=== PATIENT | female | born 1990 | race Caucasian/White ===

== ENCOUNTER 2018-08-10 15:02 | Observation (INO) ==
--- NOTE | 2018-08-10 15:45 | ED ---
HPI General Chief Complaint: Abdominal Pain Stated Complaint: abd pain Time Seen by Provider: 08/10/18 15:29 Source: patient Mode of arrival: ambulatory Limitations: no limitations History of Present Illness HPI narrative: 27 years old female complains of lower abdomen pain and nausea. Patient states her symptoms started 2 days ago. Patient states the pain and cramping pain constant pain localized to lower abdomen. Patient denies any pain radiation. Patient denies any fever chills. Patient denies any dysuria frequency. Patient denies any vaginal discharge or bleeding. Patient denies any back pain. Patient denies any chance of being . complaint: Reports abdominal pain Onset (ago): day(s) Pain Consistency: constant Location: Reports LLQ and RLQ Severity: moderate Severity scale (1-10): 6 Quality: Reports cramping Radiation: Reports none Migration to: Reports no migration Relieving factors: nothing Exacerbating factors: nothing Associated symptoms: Reports nausea Related Data Home Medications Medication Instructions Recorded Confirmed No Known Home Medications 08/10/18 08/10/18 Allergies Allergy/AdvReac Type Severity Reaction Status Date / Time No Known Allergies Allergy Verified 08/10/18 15:04 Review of Systems ROS: all other systems reviewed are negative PMFSH Medical History Medical History Patient denies medical problems (Acute) Surgical History Surgical History No history of previous surgery (Acute) Family History Family History Other Family history in first degree relatives is unremarkable Social History Social History Second Hand Smoke Exposure: No Smoking Status: Never smoker How Often Do You Have a Drink Containing Alcohol: Never Recent Travel in [facility] within the Last 8 Weeks: No Recent Out of Country Travel within the Last 8 Weeks: No Immunization History Tetanus Immunization: >5 Years Exam Narrative Exam Narrative: GENERAL: Well-nourished, well-developed patient. SKIN: Focused skin assessment warm/dry. HEAD: Normocephalic. EYES: No scleral icterus. No injection or drainage. NECK: Supple, trachea midline. No JVD or lymphadenopathy. CARDIOVASCULAR: Regular rate and rhythm without murmurs, gallops, or rubs. RESPIRATORY: Breath sounds equal bilaterally. No accessory muscle use. GASTROINTESTINAL: Abdomen soft, nondistended. Patient has mild tenderness on palpation lower abdomen. No rebound tenderness. No mass. MUSCULOSKELETAL: No cyanosis, or edema. BACK: Nontender without obvious deformity. No CVA tenderness. Course Initial Documented Vital Signs Temperature 98.9 F 08/10/18 15:04 Pulse Rate 112 H 08/10/18 15:04 Respiratory Rate 16 08/10/18 15:04 Blood Pressure 133/72 08/10/18 15:04 Pulse Oximetry 96 08/10/18 15:04 Last Documented Vital Signs Temperature 98.9 F 08/10/18 15:04 Pulse Rate 90 08/10/18 17:10 Respiratory Rate 16 08/10/18 17:10 Blood Pressure 101/67 08/10/18 17:10 Pulse Oximetry 100 08/10/18 17:10 Medical Decision Making MDM Narrative Medical decision making narrative: 27 years old female with low abdominal pain. Medical Screen Exam Complete: Yes Emergency Medical Condition: Yes Differential Diagnosis Differential Diagnosis: Differential diagnosis including colitis, UTI, pyelonephritis, nephrolithiasis, ovarian cyst, ovarian torsion, ectopic , threatened AB, cervicitis, PID. Lab Data Lab results reviewed: Yes I reviewed the patient's lab results. Result diagrams: 08/10/18 14:50 08/10/18 14:50 POC Results POC Urine Results Negative Lab Results 08/10/18 08/10/18 08/10/18 Range/Units 14:00 14:30 14:50 CBC w Diff Slide review pending WBC 17.6 H (4.0-11.0) th/mm3 RBC 4.51 (4.00-5.30) mil/mm3 Hgb 13.9 (11.6-15.3) gm/dL Hct 41.1 (35.0-46.0) % MCV 91.1 (80.0-100.0) fL MCH 30.8 (27.0-34.0) pg MCHC 33.9 (32.0-36.0) % RDW 11.8 (11.6-17.2) % Plt Count 244 (150-450) th/mm3 MPV 9.8 (7.0-11.0) fL Neut % (Auto) 83.2 H (16.0-70.0) % Lymph % (Auto) 9.8 (9.0-44.0) % [place] % (Auto) 5.9 (0.0-8.0) % Eos % (Auto) 0.4 (0.0-4.0) % Baso % (Auto) 0.7 (0.0-2.0) % Neut # (Auto) 14.7 H (1.8-7.7) th/mm3 Lymph # (Auto) 1.7 (1.0-4.8) th/mm3 [place] # (Auto) 1.0 H (0.0-0.9) th/mm3 Eos # (Auto) 0.1 (0.0-0.4) th/mm3 Baso # (Auto) 0.1 (0.0-0.2) th/mm3 WBC Differential . Diff Scan Auto diff confirmed Differential Comment . Sodium (136-145) meq/L Potassium (3.5-5.1) meq/L Chloride (98-107) meq/L Carbon Dioxide (21.0-32.0) meq/L Anion Gap (5-15) meq/L BUN (7-18) mg/dL Creatinine (0.50-1.00) mg/dL Estimated GFR (>89) mL/min Random Glucose (74-106) mg/dL Calcium (8.5-10.1) mg/dL Total Bilirubin (0.2-1.0) mg/dL AST (15-37) U/L ALT (10-53) U/L Alkaline Phosphatase (45-117) U/L Total Protein (6.4-8.2) g/dL Albumin (3.4-5.0) g/dL Lipase (73-393) U/L Urine Color Yellow (Yellw/Straw) Urine Clarity Clear (Clear) Urine pH 6.5 (5.0-8.5) Ur Specific [place] 1.025 (1.002-1.035) Urine Protein 30 H (Neg-Trace) mg/dL Urine Glucose (UA) Negative (Negative) mg/dL Urine Ketones 80 or greater H (Negative) mg/dL Urine Occult Blood Trace (Negative) Urine Nitrate Negative (Negative) Urine Bilirubin Negative (Negative) Urine Ictotest Negative (Negative) Urine Urobilinogen 0.2 (Less than 2) mg/dL Ur Leukocyte Esterase Negative (Negative) Urine RBC 0-3 (0-3) /hpf Urine WBC 6-8 H (0-5) /hpf Ur Squamous Epith Cells 6-10 H (0-5) /hpf Urine Bacteria Few H (None) /hpf Urine Mucus Moderate H (Occasional) /lpf Micro UA Comment Culture indicated Ur Microscopic Review Microscopic reviewed Urine Culture Comments Culture indicated Clue Cells (Wet Prep) None seen (None Seen) Trichomonas (Wet Prep) None seen (None Seen) Yeast (Wet Prep) None seen (None Seen) 08/10/18 Range/Units 14:50 CBC w Diff WBC (4.0-11.0) th/mm3 RBC (4.00-5.30) mil/mm3 Hgb (11.6-15.3) gm/dL Hct (35.0-46.0) % MCV (80.0-100.0) fL MCH (27.0-34.0) pg MCHC (32.0-36.0) % RDW (11.6-17.2) % Plt Count (150-450) th/mm3 MPV (7.0-11.0) fL Neut % (Auto) (16.0-70.0) % Lymph % (Auto) (9.0-44.0) % [place] % (Auto) (0.0-8.0) % Eos % (Auto) (0.0-4.0) % Baso % (Auto) (0.0-2.0) % Neut # (Auto) (1.8-7.7) th/mm3 Lymph # (Auto) (1.0-4.8) th/mm3 [place] # (Auto) (0.0-0.9) th/mm3 Eos # (Auto) (0.0-0.4) th/mm3 Baso # (Auto) (0.0-0.2) th/mm3 WBC Differential Diff Scan Differential Comment Sodium 136 (136-145) meq/L Potassium 4.4 (3.5-5.1) meq/L Chloride 101 (98-107) meq/L Carbon Dioxide 23.9 (21.0-32.0) meq/L Anion Gap 11 (5-15) meq/L BUN 12 (7-18) mg/dL Creatinine 0.71 (0.50-1.00) mg/dL Estimated GFR Greater than 89 (>89) mL/min Random Glucose 96 (74-106) mg/dL Calcium 9.0 (8.5-10.1) mg/dL Total Bilirubin 1.0 (0.2-1.0) mg/dL AST 31 (15-37) U/L ALT 21 (10-53) U/L Alkaline Phosphatase 59 (45-117) U/L Total Protein 7.9 (6.4-8.2) g/dL Albumin 3.8 (3.4-5.0) g/dL Lipase 124 (73-393) U/L Urine Color (Yellw/Straw) Urine Clarity (Clear) Urine pH (5.0-8.5) Ur Specific [place] (1.002-1.035) Urine Protein (Neg-Trace) mg/dL Urine Glucose (UA) (Negative) mg/dL Urine Ketones (Negative) mg/dL Urine Occult Blood (Negative) Urine Nitrate (Negative) Urine Bilirubin (Negative) Urine Ictotest (Negative) Urine Urobilinogen (Less than 2) mg/dL Ur Leukocyte Esterase (Negative) Urine RBC (0-3) /hpf Urine WBC (0-5) /hpf Ur Squamous Epith Cells (0-5) /hpf Urine Bacteria (None) /hpf Urine Mucus (Occasional) /lpf Micro UA Comment Ur Microscopic Review Urine Culture Comments Clue Cells (Wet Prep) (None Seen) Trichomonas (Wet Prep) (None Seen) Yeast (Wet Prep) (None Seen) Imaging Data Radiologist's impression: Abdomen/Pelvis CT 08/10/18 16:24 CONCLUSION: 1. Acute appendicitis. 2. 1.7 cm enhancing lesion in the right lobe of the liver. This probably a hemangioma versus adenoma. On a nonemergent outpatient basis, recommend an MRI of the liver for further evaluation. Discharge Plan Discharge Disposition Patient Disposition: 30 Still Patient Discharge Details Diagnosis: Acute appendicitis Physicians Team ED Provider: Pj Stewart Primary Care Provider: Primary Care Melody Whaley Rxs /Orders / Referrals /Forms Prescriptions: No Action No Known Home Medications RF: 0 Discharge Interventions Interventions: Vital Signs Last Done: 08/10/18 17:10 Status ED Status: With Doctor
[2018-08-10 16:17] LABS: Clarity,Urine Clear (Clear); Color,Urine Yellow (Yellw/Straw); Glucose,Urine (UA) Negative (Negative); Leukocyte Esterase,Urine Negative (Negative); Nitrite,Urine Negative (Negative); PH,Urine 6.5 (5.0-8.5); Specific Gravity,Urine 1.025 (1.002-1.035); Urobilinogen,Urine 0.2 mg/dL (Less than 2)
[2018-08-10 16:20] LABS: Chloride 101 meq/L (98-107); Sodium 136 meq/L (136-145)
[2018-08-10 16:24] LABS: Albumin 3.8 g/dL (3.4-5.0); Anion Gap 11 meq/L (5-15); Blood Urea Nitrogen 12 mg/dL (7-18); Carbon Dioxide 23.9 meq/L (21.0-32.0); Glucose,Random 96 mg/dL (74-106); Lipase 124 U/L (73-393)
[2018-08-10 16:27] LABS: Alanine Aminotransferase 21 U/L (10-53); Aspartate Aminotransferase 31 U/L (15-37); Glomerular Filtration Rate Greater Than 89 mL/min (>89)
[2018-08-10 16:28] LABS: Total Protein 7.9 g/dL (6.4-8.2)
[2018-08-10 16:29] LABS: Alkaline Phosphatase 59 U/L (45-117)
[2018-08-10 16:30] LABS: Baso # (Auto) 0.1 th/mm3 (0.0-0.2); Baso % (Auto) 0.7 % (0.0-2.0); Eos # (Auto) 0.1 th/mm3 (0.0-0.4); Eos % (Auto) 0.4 % (0.0-4.0); Hematocrit 41.1 % (35.0-46.0); Hemoglobin 13.9 gm/dL (11.6-15.3); Lymph # (Auto) 1.7 th/mm3 (1.0-4.8); Lymph % (Auto) 9.8 % (9.0-44.0); Mean Corpuscular HGB Conc 33.9 % (32.0-36.0); Mean Corpuscular Hemoglobin 30.8 pg (27.0-34.0); Mean Corpuscular Volume 91.1 fL (80.0-100.0); Mean Platelet Volume 9.8 fL (7.0-11.0); Mono % (Auto) 5.9 % (0.0-8.0); Neut # (Auto) 14.7 th/mm3 (1.8-7.7); Neut % (Auto) 83.2 % (16.0-70.0); Platelet Count 244 th/mm3 (150-450); Red Blood Count 4.51 mil/mm3 (4.00-5.30); Red Cell Distribution Width 11.8 % (11.6-17.2); White Blood Count 17.6 th/mm3 (4.0-11.0)
[2018-08-10 16:31] LABS: Bilirubin,Urine Negative (Negative); Ictotest,Urine Negative (Negative); RBC,Urine 0-3 /hpf (0-3)
[2018-08-10 16:32] LABS: Bacteria,Urine Few /hpf; Mucus,Urine Moderate /lpf (Occasional)
[2018-08-10 16:35] LABS: Potassium 4.4 meq/L (3.5-5.1)
--- NOTE | 2018-08-10 17:38 | CT ---
EXAM DATE: 08/10/2018 4:48 PM EDT AGE/SEX: 27 years / Female INDICATIONS: Lower abdominal pain and nausea. CLINICAL DATA: This is the patient's initial encounter. Patient reports that signs and symptoms have been present for 2 days and indicates a pain score of 3/10. MEDICAL/SURGICAL HISTORY: None. None. ORAL CONTRAST: No oral contrast ingested. RADIATION DOSE: 13.70 CTDI (mGy) COMPARISON: No prior exams available for comparison. TECHNIQUE: Multiple contiguous axial images were obtained through the abdomen and pelvis following b olus infusion of 95 ml Omnipaque 350 (iohexol) nonionic water-soluble contrast as a single exam dos e. No oral contrast ingested. Using automated exposure control and adjustment of the mA and/or kV ac cording to patient size, radiation dose was kept as low as reasonably achievable to obtain optimal di agnostic quality images. DICOM format image data is available electronically for review and comparis on. FINDINGS: Lower Lungs: The visualized lower lungs are clear. Liver: The liver has a homogeneous density. There is a 1.7 cm enhancing lesion in the right lobe of t he liver.. There is no dilation of the biliary tree. The gallbladder is unremarkable. Spleen: Homogeneous density without enlargement. Pancreas: Unremarkable without mass or calcification. Kidneys: Normal in size and shape. No evidence of mass or hydronephrosis. Adrenal Glands: Unremarkable. Aorta: The aorta and proximal iliac vessels are grossly unremarkable without aneurysmal dilation. Bowel/Mesentery: The bowel gas pattern is grossly within normal limits. The appendix is dilated and surrounded by inflammatory changes in the right lower quadrant. There is a trace of fluid adjacent to the appendix. No definite loculated fluid collections are demonstrated. These findings are consisten t with acute appendicitis. There is no evidence of free air. Abdominal Wall: Intact. Retroperitoneum: No evidence of adenopathy in the retrocrural, para-aortic, or deep pelvic regions. Bladder: Contours are smooth. Reproductive Organs: No abnormal masses or calcifications seen. Inguinal: The inguinal region is unremarkable without evidence of adenopathy. Bony Structures: Unremarkable. CONCLUSION: 1. Acute appendicitis. 2. 1.7 cm enhancing lesion in the right lobe of the liver. This probably a hemangioma versus adenoma . On a nonemergent outpatient basis, recommend an MRI of the liver for further evaluation. Electronically signed by: Eddie Faye MD 08/10/2018 5:36 PM EDT
--- NOTE | 2018-08-10 17:58 | P.HP ---
History of Present Illness Primary Care Physician: No Primary Care Physician Chief Complaint: Abdominal pain History of Present Illness: This is a 27-year-old female patient with no known medical history presented to the ED with complaints of worsening abdominal pain and nausea since Saturday night. Patient states that around Saturday evening she developed a right lower quadrant abdominal pain that was cramping and sharp in nature, was especially worse when she ate or drink anything, she does admit to associated nausea with the abdominal pain although she has not vomited. Denies any diarrhea or changes in her bowels. She does admit to subjective fevers and chills although she did not take her temperature at home. Denies any pain when she urinates. Denies any vaginal discharge or bleeding. Denies any chest pain or shortness of breath. Patient does not have a medical history. Denies any tobacco abuse. Family history negative for any significant disease. Surgical history significant for wisdom teeth extraction. - Diagnosis (1) Acute cholecystitis Review of Systems All other systems reviewed negative except as stated in HPI PMF - History History Provided By: Patient - Medical History Medical History: Medical History (Last Reviewed 08/10/18 @ 17:58 by Angelica Alcantara) Patient denies medical problems - Surgical History Surgical History: Surgical History (Last Reviewed 08/10/18 @ 17:58 by Angelica Alcantara) No history of previous surgery - Family History Family History: Family History (Last Updated 08/10/18 @ 17:58 by Angelica Alcantara) Other Family history in first degree relatives is unremarkable - Social History I have reviewed the patient's Social History: Yes - Tobacco History Second Hand Smoke Exposure: No Tobacco Use In Past 30 Days: No Smoking Status: Never smoker - Alcohol History How Often Do You Have a Drink Containing Alcohol: Never - Travel History Recent Travel in the [place] Within the Last 8 Weeks: No Recent Travel Out of the Country Within the Last 8 Weeks: No - Immunization History Tetanus Immunization: >5 Years Medications and Allergies Allergies Allergy/AdvReac Type Severity Reaction Status Date / Time No Known Allergies Allergy Verified 08/10/18 15:04 Home Medications Medication Instructions Recorded Confirmed Type No Known Home Medications 08/10/18 08/10/18 History Exam Vital signs: Vital Signs 08/10/18 15:04 08/10/18 17:10 Temperature 98.9 F Pulse Rate 112 H 90 Respiratory Rate 16 16 Blood Pressure 133/72 101/67 Pulse Oximetry 96 100 Intake & Output 08/09/18 08/10/18 08/10/18 18:59 06:59 18:59 Weight 76.9 kg Narrative: GENERAL: Well-developed, well-nourished patient in [facility]. SKIN: Warm and dry. No rash. HEAD: Normocephalic. Atraumatic. EYES: Pupils equal and round. No scleral icterus. No injection or drainage. ENT: No nasal bleeding or discharge. Mucous membranes pink and moist. NECK: Supple. Trachea midline. CARDIOVASCULAR: Regular rate and rhythm. S1, S2 noted. No murmur appreciated. RESPIRATORY: No accessory muscle use. Clear to auscultation. Breath sounds equal bilaterally. GASTROINTESTINAL: Abdomen soft, nondistended. Normoactive bowel sounds x4. Right lower quadrant tenderness to palpation. MUSCULOSKELETAL: No obvious deformities. Extremities without clubbing, cyanosis , or edema. NEUROLOGICAL: Awake and alert. No obvious cranial nerve deficits. Motor grossly within normal limits. 5/5 muscle strength in bilateral upper and lower extremities. Normal speech. PSYCHIATRIC: Appropriate mood and affect; insight and judgment normal. Results - Labs CBC & Chem 7: 08/10/18 14:50 08/10/18 14:50 Labs: Laboratory Results - last 24 hr 08/10/18 08/10/18 08/10/18 14:00 14:30 14:50 CBC w Diff Slide review pending WBC 17.6 H RBC 4.51 Hgb 13.9 Hct 41.1 MCV 91.1 MCH 30.8 MCHC 33.9 RDW 11.8 Plt Count 244 MPV 9.8 Neut % (Auto) 83.2 H Lymph % (Auto) 9.8 [place] % (Auto) 5.9 Eos % (Auto) 0.4 Baso % (Auto) 0.7 Neut # (Auto) 14.7 H Lymph # (Auto) 1.7 [place] # (Auto) 1.0 H Eos # (Auto) 0.1 Baso # (Auto) 0.1 WBC Differential . Diff Scan Auto diff confirmed Differential Comment . Sodium Potassium Chloride Carbon Dioxide Anion Gap BUN Creatinine Estimated GFR Random Glucose Calcium Total Bilirubin AST ALT Alkaline Phosphatase Total Protein Albumin Lipase Urine Color Yellow Urine Clarity Clear Urine pH 6.5 Ur Specific [place] 1.025 Urine Protein 30 H Urine Glucose (UA) Negative Urine Ketones 80 or greater H Urine Occult Blood Trace Urine Nitrate Negative Urine Bilirubin Negative Urine Ictotest Negative Urine Urobilinogen 0.2 Ur Leukocyte Esterase Negative Urine RBC 0-3 Urine WBC 6-8 H Ur Squamous Epith Cells 6-10 H Urine Bacteria Few H Urine Mucus Moderate H Micro UA Comment Culture indicated Ur Microscopic Review Microscopic reviewed Urine Culture Comments Culture indicated Clue Cells (Wet Prep) None seen Trichomonas (Wet Prep) None seen Yeast (Wet Prep) None seen 08/10/18 14:50 CBC w Diff WBC RBC Hgb Hct MCV MCH MCHC RDW Plt Count MPV Neut % (Auto) Lymph % (Auto) [place] % (Auto) Eos % (Auto) Baso % (Auto) Neut # (Auto) Lymph # (Auto) [place] # (Auto) Eos # (Auto) Baso # (Auto) WBC Differential Diff Scan Differential Comment Sodium 136 Potassium 4.4 Chloride 101 Carbon Dioxide 23.9 Anion Gap 11 BUN 12 Creatinine 0.71 Estimated GFR Greater than 89 Random Glucose 96 Calcium 9.0 Total Bilirubin 1.0 AST 31 ALT 21 Alkaline Phosphatase 59 Total Protein 7.9 Albumin 3.8 Lipase 124 Urine Color Urine Clarity Urine pH Ur Specific [place] Urine Protein Urine Glucose (UA) Urine Ketones Urine Occult Blood Urine Nitrate Urine Bilirubin Urine Ictotest Urine Urobilinogen Ur Leukocyte Esterase Urine RBC Urine WBC Ur Squamous Epith Cells Urine Bacteria Urine Mucus Micro UA Comment Ur Microscopic Review Urine Culture Comments Clue Cells (Wet Prep) Trichomonas (Wet Prep) Yeast (Wet Prep) - Imaging Impressions Abdomen/Pelvis CT 08/10/18 16:24 CONCLUSION: 1. Acute appendicitis. 2. 1.7 cm enhancing lesion in the right lobe of the liver. This probably a hemangioma versus adenoma. On a nonemergent outpatient basis, recommend an MRI of the liver for further evaluation. Caprini VTE Risk Assessment Caprini VTE Risk Assessment: No/Low Risk (score <= 1) Caprini Risk Assessment Model: Point Value = 1 Point Value = 2 Point Value = 3 Point Value = 5 Age 41-60 Minor surgery BMI > 25 kg/m2 Swollen legs Varicose veins or History of unexplained or recurrent spontaneous Oral contraceptives or hormone replacement Sepsis (< 1 month) Serious lung disease, including pneumonia (< 1 month) Abnormal pulmonary function Acute myocardial infarction Congestive heart failure (< 1 month) History of inflammatory bowel disease Medical patient at bed rest Age 61-74 Arthroscopic surgery Major open surgery (> 45 min) Laparoscopic surgery (> 45 min) Malignancy Confined to bed (> 72 hours) Immobilizing plaster cast Central venous access Age >= 75 History of VTE Family history of VTE Factor V Leiden Prothrombin [id number] Lupus anticoagulant Anticardiolipin antibodies Elevated serum homocysteine Heparin-induced thrombocytopenia Other congenital or acquired thrombophilia Stroke (< 1 month) Elective arthroplasty Hip, pelvis, or leg fracture Acute spinal cord injury (< 1 month) Prophylaxis Regimen: Total Risk Factor Score Risk Level Prophylaxis Regimen 0-1 Low Early ambulation 2 Moderate Order ONE of the following: *Sequential Compression Device (SCD) *Heparin 5000 units SQ BID 3-4 Higher Order ONE of the following medications: *Heparin 5000 units SQ TID *Enoxaparin/Lovenox 40 mg SQ daily (WT < 150 kg, CrCl > 30 mL/min) *Enoxaparin/Lovenox 30 mg SQ daily (WT < 150 kg, CrCl > 10-29 mL/min) *Enoxaparin/Lovenox 30 mg SQ BID (WT < 150 kg, CrCl > 30 mL/min) AND/OR *Sequential Compression Device (SCD) 5 or more Highest Order ONE of the following medications: *Heparin 5000 units SQ TID (Preferred with Epidurals) *Enoxaparin/Lovenox 40 mg SQ daily (WT < 150 kg, CrCl > 30 mL/min) *Enoxaparin/Lovenox 30 mg SQ daily (WT < 150 kg, CrCl > 10-29 mL/min) *Enoxaparin/Lovenox 30 mg SQ BID (WT < 150 kg, CrCl > 30 mL/min) AND *Sequential Compression Device (SCD) Assessment and Plan - Assessment (1) Acute cholecystitis Code(s): K81.0 - Acute cholecystitis Status: Acute - Plan This is a 27-year-old female patient with: Acute appendicitis -Patient presents with abdominal pain times 2 days with associated nausea. -Presented with leukocytosis white blood cells 17,000 and tachycardia the source appendicitis. -Abdominal/pelvis CT reviewed showing acute appendicitis. Also incidentally found a lesion on the right lobe of the liver. Differential includes hemangioma versus adenoma. Follow-up outpatient MRI. -Pain medication with IV morphine as needed. Antiemetics as needed. -Ensure hydration, IV fluids. -Started on Levaquin and Zosyn. UA showing presence of white blood cells likely secondary to acute appendicitis. Will await urine culture. Denies any dysuria. -General surgery has been consulted and aware of patient admission. Will keep n.p.o. Plan for OR possibly tonight or early a.m. -Supportive care. Abnormal UA Rule out UTI vs STI -Started on Levaquin prophylactically. UA showing presence of white blood cells. Suspect secondary to acute appendicitis. Await urine culture. -A pelvic exam was performed in ED. Trichomonas negative. Chlamydia pending. DVT prophylaxis: SCDs. Early ambulation.
[2018-08-10] MEDS ORDERED: Acetaminophen 325 MG Tablet PO PRN (18:03)
[2018-08-10] MEDS ORDERED: Bisacodyl 10 MG Supp RECTAL PRN (18:03)
[2018-08-10] MEDS: Piperacil/Tazo 4.5 GM Premix 4.5 GM/100 ML BAG IV.SIG SCH (18:13)
[2018-08-10] MEDS: Sod Chloride 0.9% Inj 1,000 ML IV.CONT SCH (18:13)
[2018-08-10] MEDS ORDERED: Morphine Sulfate Inj 2 MG/ML Vial IV.PUSH PRN (18:19)
[2018-08-10] MEDS: Levofloxacin 500 mg Premix Inj 500 MG/100 ML PIGGYBACK IV.SIG SCH ×2 (18:54→19:35)
[2018-08-10] MEDS ORDERED: Bupivacaine/Epinephrine Inj 0.25% 50 ML Vial ONE (18:59)
[2018-08-10] MEDS ORDERED: fentaNYL Citrate Inj 250 MCG/5 ML Ampul ONE (19:06)
[2018-08-10] MEDS ORDERED: Succinylcholine Inj 100 MG/5 ML Syringe IV.PUSH ONE (19:44)
--- NOTE | 2018-08-10 20:39 | P.CON ---
History of Present Illness Consult date: 08/10/18 Reason for Consult: Acute appendicitis Primary Care Provider: No Primary Care Physician Family Provider: No Primary Care Physician Chief Complaint: Abdominal pain History of Present Illness: Patient is a 27-year-old female who has a 3-day history of abdominal pain. It has localized to the right lower quadrant and on workup today she had elevated white blood cell count and CT findings consistent with acute appendicitis without perforation. She has no other major medical problems at this time. Review of Systems All other systems reviewed negative except as stated in [facility] - History History Provided By: Patient - Medical History Medical History: Medical History (Last Reviewed 08/10/18 @ 17:58 by Angelica Alcantara) Patient denies medical problems - Surgical History Surgical History: Surgical History (Last Reviewed 08/10/18 @ 17:58 by Angelica Alcantara) No history of previous surgery - Family History Family History: Family History (Last Updated 08/10/18 @ 17:58 by Angelica Alcantara) Other Family history in first degree relatives is unremarkable - Tobacco History Second Hand Smoke Exposure: No Tobacco Use In Past 30 Days: No Smoking Status: Never smoker - Alcohol History How Often Do You Have a Drink Containing Alcohol: 2 to 4 times a month - Travel History Recent Travel in the [place] Within the Last 8 Weeks: No Recent Travel Out of the Country Within the Last 8 Weeks: No - Immunization History Tetanus Immunization: >5 Years Medications and Allergies Active Medications: Active Medications Acetaminophen (Tylenol) 650 mg PO Q4H PRN PRN Reason: Temp > 100.4 Al Hydroxide/Mg Hydroxide (Milk Of Magnesia Liq) 30 ml PO Q12H PRN PRN Reason: Mild Constipation Bisacodyl (Dulcolax Supp) 10 mg RECTAL DAILY PRN PRN Reason: SEVERE CONSITIPATION Piperacillin/Tazobactam/Dextrose (Zosyn 4.5 Gm Premix) 4.5 gm in 100 mls @ 200 mls/hr IV.SIG Q6HR [facility] Last Infusion: 08/10/18 18:45 Dose: Infused Sodium Chloride (Ns Inj) 1,000 mls @ 100 mls/hr IV.CONT .Q10H [facility] Last Admin: 08/10/18 18:13 Dose: 100 mls/hr Lactulose (Lactulose Liq) 30 ml PO DAILY PRN PRN Reason: SEVERE CONSITIPATION Morphine Sulfate (Morphine Inj) 2 mg IV.PUSH Q4H PRN PRN Reason: PAIN SCALE 1 TO 10 Ondansetron HCl (Zofran Inj) 4 mg IV.PUSH Q6H PRN PRN Reason: NAUSEA OR VOMITING Sennosides (Senokot) 17.2 mg PO Q12H PRN PRN Reason: Moderate Constipation Allergies Allergy/AdvReac Type Severity Reaction Status Date / Time No Known Allergies Allergy Verified 08/10/18 15:04 Home Medications Medication Instructions Recorded Confirmed Type No Known Home Medications 08/10/18 08/10/18 History Physical Exam Vital signs: Vital Signs 08/10/18 15:04 08/10/18 17:10 08/10/18 18:37 Temperature 98.9 F 98.6 F Pulse Rate 112 H 90 92 H Respiratory Rate 16 16 16 Blood Pressure 133/72 101/67 95/63 L Pulse Oximetry 96 100 98 08/10/18 19:15 Temperature 98.6 F Pulse Rate 92 H Respiratory Rate 16 Blood Pressure 95/63 L Pulse Oximetry 98 Intake & Output 08/10/18 08/10/18 08/11/18 06:59 18:59 06:59 Intake Total 100 / 100 Output Total Balance 100 / 100 -10 / -10 Weight 76.9 kg Intake: IV 100 / 100 Zosyn 4.5 GM Premix 4.5 gm In 100 / 100 100 ml @ 200 mls/hr IV.SIG Q6HR [facility] Rx#:[id number] Output: Estimated Blood Loss - Constitutional mild distress - Routine Respiratory Exam Present: CTA bilaterally - Routine Cardiovascular Exam Present: RRR - Routine Abdominal Exam Present: soft, tenderness (Right lower quadrant), guarding Assessment and Plan - Assessment (1) Acute appendicitis Code(s): K35.80 - Unspecified acute appendicitis Status: Acute Plan: Laparoscopic appendectomy possible open. I discussed risks of the procedure with the patient and her mother including but not limited to: Bleeding, infection, need for drainage, need for reoperation, and leakage with fistula formation. I have discussed the small risk of adhesion formation with bowel obstruction in the future. I discussed remedies, consequences, alternatives and convalescence; she vocalizes understanding and agrees to proceed. We will proceed with appendectomy this evening. OR staff is on the way in. - Plan Discussed Condition With: Patient Mother Nursing staff and Dr. Stewart - Attending Attestation I attest that I had a [id number] encounter with the patient on the same day, and personally performed and documented my assessment and findings in the medical record. The following services were provided during this hospital visit: Chart data review, vital sign assessments/reviewing monitor data Review of consultation notes if present Medication orders/review and/or management Ordering and/or reviewing lab tests Ordering and/or interpreting/reviewing x-rays and/or diagnostic studies Care of the patient and discussion of the patient with the care team Documentation time To help prompt me to consider important information that might be impacting today's encounter and assessment, Information from prior notes written by myself or my colleagues may have been "brought forward/copy and pasted" into today's note. (1) Acute appendicitis Qualifiers: Acute appendicitis type: unspecified acute appendicitis type Qualified Code(s ): K35.80 - Unspecified acute appendicitis
[2018-08-10] MEDS ORDERED: Ketorolac Inj 30 MG/ML (IVP) Vial IV.PUSH ONE (20:40)
--- NOTE | 2018-08-10 20:46 | P.OP ---
- Preoperative Diagnosis (1) Acute appendicitis - Postoperative Diagnosis (1) Acute appendicitis with localized peritonitis, without perforation or abscess Date of procedure: 08/10/18 Procedure: Laparoscopic appendectomy Anesthesia: SENTHIL Surgeon: Srinivasa Robb MD Facility Designer: Laurie Reyes MS 3 Estimated blood loss (mL): 10 IV fluids (mL): 700 Pathology: other (Appendix to pathology) Operation and Findings: Patient was taken to the operating room and placed on the operating table in the supine position. After an adequate level of general endotracheal anesthesia was achieved, the abdomen was prepped and draped in the usual fashion. Time-out was taken, confirming the correct patient, site, and procedure to be performed. Skin and subcutaneous tissue was infiltrated with local anesthetic and an incision made in the umbilicus and carried through the fascia sharply. The peritoneal cavity was directly visualized. A 12 mm balloon trocar was inserted and the balloon inflated. The abdomen was insufflated. The patient was placed in Trendelenburg position. Two 5 mm trocars were then placed, with the first in the right lower quadrant and the second in the suprapubic region. Both entered the abdominal cavity under direct vision uneventfully. The cecum was gently retracted medially and the appendix was seen to be adhered to the distal ileum. This was gently peeled away and the mesoappendix then divided with the harmonic scalpel in a bloodless plane. The mesoappendix was dissected back to the base of the appendix near the cecum. A 0 PDS Endoloop was slipped over the appendix and cinched down at the base of the appendix. The appendix was then divided 1 cm distal to the Endoloop with the harmonic scalpel. The appendix was placed into an Endo Catch device and while observing via the right lower quadrant 5 mm trocar site, was removed via the umbilical port and passed off the table. The appendiceal stump and mesoappendix were reexamined and seen to be clean and dry. A small amount of liquid down in the pelvis was irrigated and aspirated. With hemostasis assured insufflation was discontinued. The right lower quadrant and suprapubic ports were removed under direct vision. No bleeding was noted from the ports during desufflation. The laparoscope and umbilical port were then removed. The fascia was closed in the umbilicus with both simple interrupted and [id number] 0 Vicryl suture. The remaining local anesthetic was injected into each of the trocar sites. The skin was closed at each of the trocar sites with 4-0 Vicryl in an interrupted buried fashion. The trocar sites were dressed with Steri-Strips. Sponge and needle counts were reported to be correct. The patient was extubated and taken back to the recovery room in stable condition. She tolerated the procedure well.
[2018-08-11] MEDS: Piperacil/Tazo 4.5 GM Premix 4.5 GM/100 ML BAG IV.SIG SCH (01:00)
[2018-08-11] MEDS: Sod Chloride 0.9% Inj 1,000 ML IV.CONT SCH (04:28)
[2018-08-11 05:53] LABS: Baso % (Auto) 0.2 % (0.0-2.0); Eos % (Auto) 0.1 % (0.0-4.0); Hematocrit 37.3 % (35.0-46.0); Hemoglobin 12.9 gm/dL (11.6-15.3); Lymph % (Auto) 6.8 % (9.0-44.0); Mean Corpuscular HGB Conc 34.5 % (32.0-36.0); Mean Corpuscular Volume 89.9 fL (80.0-100.0); Mono # (Auto) 0.4 th/mm3 (0.0-0.9); Mono % (Auto) 3.1 % (0.0-8.0); Neut # (Auto) 12.9 th/mm3 (1.8-7.7); Neut % (Auto) 89.8 % (16.0-70.0); Platelet Count 269 th/mm3 (150-450); Red Blood Count 4.15 mil/mm3 (4.00-5.30); Red Cell Distribution Width 12.2 % (11.6-17.2); White Blood Count 14.3 th/mm3 (4.0-11.0)
[2018-08-11 08:24] VITALS: BP 109/58; PULSE 82; RESP 20; TEMP 96.5; O2SAT 99
--- NOTE | 2018-08-11 08:49 | P.PNIM ---
Subjective Interval history: Follow up acute appendicitis. Patient seen and examined, status post appendectomy by Dr. Robb. Doing well. Pain well controlled. Eating well without any abdominal pain, n/v/d. Spoke with surgeon, JOSE A to dc home, no ABX necessary. Pain medications as ordered. Mother at bedside and updated as well. Afebrile. No urinary symptoms to suggest UTI. No dysuria. Will hold off on ABX rx. Patient will follow with PCP. Physical Exam Vital signs: Vital Signs 08/10/18 15:04 08/10/18 17:10 08/10/18 18:37 Temperature 98.9 F 98.6 F Pulse Rate 112 H 90 92 H Respiratory Rate 16 16 16 Blood Pressure 133/72 101/67 95/63 L Pulse Oximetry 96 100 98 08/10/18 19:15 08/10/18 20:26 08/10/18 20:30 Temperature 98.6 F 98.7 F Pulse Rate 92 H 98 H 98 H Respiratory Rate 16 16 16 Blood Pressure 95/63 L 106/51 L 106/71 Pulse Oximetry 98 98 95 08/10/18 20:40 08/10/18 20:50 08/10/18 21:00 Temperature 98.3 F Pulse Rate 93 H 93 H 93 H Respiratory Rate 16 16 16 Blood Pressure 102/68 105/68 101/72 Pulse Oximetry 96 98 98 08/10/18 21:10 08/10/18 21:20 08/11/18 00:00 Temperature 97.7 F 98.1 F Pulse Rate 95 H 92 H 89 Respiratory Rate 16 16 16 Blood Pressure 107/75 104/77 99/71 L Pulse Oximetry 98 97 98 08/11/18 04:00 08/11/18 08:00 Temperature 97.0 F L 96.5 F L Pulse Rate 76 82 Respiratory Rate 16 20 Blood Pressure 103/70 109/58 L Pulse Oximetry 98 99 Intake & Output 08/10/18 08/11/18 08/11/18 18:59 06:59 18:59 Intake Total 100 / 100 1800 / 1800 Output Total 10 / 10 Balance 100 / 100 1790 / 1790 Weight 76.9 kg 81.2 kg Intake: IV 100 / 100 1100 / 1100 LR 1000 mL Inj 1,000 ML @ 0 mls 0 / 0 /hr .ROUTE .[facility] Rx#: [id number] NS Inj 1,000 ML @ 100 mls/hr IV 1000 / 1000 .CONT .Q10H [facility] Rx#:[id number] Zosyn 4.5 GM Premix 4.5 gm In 100 / 100 100 / 100 100 ml @ 200 mls/hr IV.SIG Q6HR [facility] Rx#:[id number] Anesthesia Amount 700 / 700 Output: Estimated Blood Loss 10 / 10 Other: # Voids 1 Weight On Admission 81.2 kg Narrative: GENERAL: Well-developed, well-nourished patient in NAD. SKIN: Warm and dry. No rash. HEAD: Normocephalic. Atraumatic. EYES: Pupils equal and round. No scleral icterus. No injection or drainage. ENT: No nasal bleeding or discharge. Mucous membranes pink and moist. NECK: Supple. Trachea midline. CARDIOVASCULAR: Regular rate and rhythm. S1, S2 noted. No murmur appreciated. RESPIRATORY: No accessory muscle use. Clear to auscultation. Breath sounds equal bilaterally. GASTROINTESTINAL: Abdomen soft, nondistended. Normoactive bowel sounds x4. Steri strips present, c/d/i without erythema or drainage. No pain to palpation. MUSCULOSKELETAL: No obvious deformities. Extremities without clubbing, cyanosis , or edema. NEUROLOGICAL: Awake and alert. No obvious cranial nerve deficits. Motor grossly within normal limits. 5/5 muscle strength in bilateral upper and lower extremities. Normal speech. PSYCHIATRIC: Appropriate mood and affect; insight and judgment normal. Results - Labs CBC & Chem 7: 08/11/18 05:15 08/10/18 14:50 Laboratory Results - last 24 hr 08/10/18 08/10/18 08/10/18 14:00 14:30 14:30 CBC w Diff WBC RBC Hgb Hct MCV MCH MCHC RDW Plt Count MPV Neut % (Auto) Lymph % (Auto) [place] % (Auto) Eos % (Auto) Baso % (Auto) Neut # (Auto) Lymph # (Auto) [place] # (Auto) Eos # (Auto) Baso # (Auto) WBC Differential Diff Scan Differential Comment Sodium Potassium Chloride Carbon Dioxide Anion Gap BUN Creatinine Estimated GFR Random Glucose Calcium Total Bilirubin AST ALT Alkaline Phosphatase Total Protein Albumin Lipase Urine Color Yellow Urine Clarity Clear Urine pH 6.5 Ur Specific [place] 1.025 Urine Protein 30 H Urine Glucose (UA) Negative Urine Ketones 80 or greater H Urine Occult Blood Trace Urine Nitrate Negative Urine Bilirubin Negative Urine Ictotest Negative Urine Urobilinogen 0.2 Ur Leukocyte Esterase Negative Urine RBC 0-3 Urine WBC 6-8 H Ur Squamous Epith Cells 6-10 H Urine Bacteria Few H Urine Mucus Moderate H Micro UA Comment Culture indicated Ur Microscopic Review Microscopic reviewed Urine Culture Comments Culture indicated Clue Cells (Wet Prep) None seen Trichomonas (Wet Prep) None seen Yeast (Wet Prep) None seen Chlam trachomat DNA PCR Not detected N.gonorrhoeae DNA (PCR) Not detected 08/10/18 08/10/18 08/11/18 14:50 14:50 05:15 CBC w Diff Slide review pending Auto diff final WBC 17.6 H 14.3 H RBC 4.51 4.15 Hgb 13.9 12.9 Hct 41.1 37.3 MCV 91.1 89.9 MCH 30.8 31.0 MCHC 33.9 34.5 RDW 11.8 12.2 Plt Count 244 269 MPV 9.8 10.0 Neut % (Auto) 83.2 H 89.8 H Lymph % (Auto) 9.8 6.8 L [place] % (Auto) 5.9 3.1 Eos % (Auto) 0.4 0.1 Baso % (Auto) 0.7 0.2 Neut # (Auto) 14.7 H 12.9 H Lymph # (Auto) 1.7 1.0 [place] # (Auto) 1.0 H 0.4 Eos # (Auto) 0.1 0.0 Baso # (Auto) 0.1 0.0 WBC Differential . . Diff Scan Auto diff confirmed Differential Comment . . Sodium 136 Potassium 4.4 Chloride 101 Carbon Dioxide 23.9 Anion Gap 11 BUN 12 Creatinine 0.71 Estimated GFR Greater than 89 Random Glucose 96 Calcium 9.0 Total Bilirubin 1.0 AST 31 ALT 21 Alkaline Phosphatase 59 Total Protein 7.9 Albumin 3.8 Lipase 124 Urine Color Urine Clarity Urine pH Ur Specific [place] Urine Protein Urine Glucose (UA) Urine Ketones Urine Occult Blood Urine Nitrate Urine Bilirubin Urine Ictotest Urine Urobilinogen Ur Leukocyte Esterase Urine RBC Urine WBC Ur Squamous Epith Cells Urine Bacteria Urine Mucus Micro UA Comment Ur Microscopic Review Urine Culture Comments Clue Cells (Wet Prep) Trichomonas (Wet Prep) Yeast (Wet Prep) Chlam trachomat DNA PCR N.gonorrhoeae DNA (PCR) - Imaging Impressions Abdomen/Pelvis CT 08/10/18 16:24 CONCLUSION: 1. Acute appendicitis. 2. 1.7 cm enhancing lesion in the right lobe of the liver. This probably a hemangioma versus adenoma. On a nonemergent outpatient basis, recommend an MRI of the liver for further evaluation. Assessment and Plan - Assessment (1) Acute cholecystitis Code(s): K81.0 - Acute cholecystitis Status: Acute - Plan This is a 27-year-old female patient with: Acute appendicitis status post appendectomy post op day #1. -Patient presents with abdominal pain times 2 days with associated nausea. Improved. -Presented with leukocytosis white blood cells 17,000 and tachycardia the source appendicitis. Improved today. -Abdominal/pelvis CT reviewed showing acute appendicitis. Also incidentally found a lesion on the right lobe of the liver. Differential includes hemangioma versus adenoma. Follow-up outpatient MRI. -Pain medication with IV morphine as needed. Antiemetics as needed. -Ensure hydration, IV fluids. -Started on IV Zosyn. UA showing presence of white blood cells likely secondary to acute appendicitis. Urine culture still pending. No urinary symptoms. Will hold off on ABX for now. Surgeon is clearing patient to go home, no abx, pain medications as written. -General surgery has been consulted. Signed off. -Tolerating Po intake. -Supportive care. Abnormal UA -UA showing presence of white blood cells. Suspect secondary to acute appendicitis. Await urine culture. No urinary symptoms. Will hold off on abx for now. -A pelvic exam was performed in ED. Trichomonas negative. Chlamydia/Shorty negative. DVT prophylaxis: SCDs. Early ambulation. DC Home. Follow up PCP. RX as written. Activity as tolerated. Diet as tolerated.
--- NOTE | 2018-08-11 10:30 | P.PN ---
Subjective Interval history: Feels much better; tolerated breakfast Physical Exam Vital signs: Vital Signs 08/10/18 15:04 08/10/18 17:10 08/10/18 18:37 Temperature 98.9 F 98.6 F Pulse Rate 112 H 90 92 H Respiratory Rate 16 16 16 Blood Pressure 133/72 101/67 95/63 L Pulse Oximetry 96 100 98 08/10/18 19:15 08/10/18 20:26 08/10/18 20:30 Temperature 98.6 F 98.7 F Pulse Rate 92 H 98 H 98 H Respiratory Rate 16 16 16 Blood Pressure 95/63 L 106/51 L 106/71 Pulse Oximetry 98 98 95 08/10/18 20:40 08/10/18 20:50 08/10/18 21:00 Temperature 98.3 F Pulse Rate 93 H 93 H 93 H Respiratory Rate 16 16 16 Blood Pressure 102/68 105/68 101/72 Pulse Oximetry 96 98 98 08/10/18 21:10 08/10/18 21:20 08/11/18 00:00 Temperature 97.7 F 98.1 F Pulse Rate 95 H 92 H 89 Respiratory Rate 16 16 16 Blood Pressure 107/75 104/77 99/71 L Pulse Oximetry 98 97 98 08/11/18 04:00 08/11/18 08:00 Temperature 97.0 F L 96.5 F L Pulse Rate 76 82 Respiratory Rate 16 20 Blood Pressure 103/70 109/58 L Pulse Oximetry 98 99 Intake & Output 08/10/18 08/11/18 08/11/18 18:59 06:59 18:59 Intake Total 100 / 100 1800 / 1800 Output Total Balance 100 / 100 1790 / 1790 Weight 76.9 kg 81.2 kg Intake: IV 100 / 100 1100 / 1100 LR 1000 mL Inj 1,000 ML @ 0 mls 0 / 0 /hr .ROUTE .[facility] Rx#: [id number] NS Inj 1,000 ML @ 100 mls/hr IV 1000 / 1000 .CONT .Q10H [facility] Rx#:[id number] Zosyn 4.5 GM Premix 4.5 gm In 100 / 100 100 / 100 100 ml @ 200 mls/hr IV.SIG Q6HR [facility] Rx#:[id number] Anesthesia Amount 700 / 700 Output: Estimated Blood Loss Other: # Voids 1 Date of Last Bowel Movement 08/10/18 Weight On Admission 81.2 kg - Constitutional no acute distress - Routine Abdominal Exam Present: soft, wound (Steri-strips intact) Results - Labs CBC & Chem 7: 08/11/18 05:15 08/10/18 14:50 Laboratory Results - last 24 hr 08/10/18 08/10/18 08/10/18 14:00 14:30 14:30 CBC w Diff WBC RBC Hgb Hct MCV MCH MCHC RDW Plt Count MPV Neut % (Auto) Lymph % (Auto) [place] % (Auto) Eos % (Auto) Baso % (Auto) Neut # (Auto) Lymph # (Auto) [place] # (Auto) Eos # (Auto) Baso # (Auto) WBC Differential Diff Scan Differential Comment Sodium Potassium Chloride Carbon Dioxide Anion Gap BUN Creatinine Estimated GFR Random Glucose Calcium Total Bilirubin AST ALT Alkaline Phosphatase Total Protein Albumin Lipase Urine Color Yellow Urine Clarity Clear Urine pH 6.[address] 1.025 Urine Protein 30 H Urine Glucose (UA) Negative Urine Ketones 80 or greater H Urine Occult Blood Trace Urine Nitrate Negative Urine Bilirubin Negative Urine Ictotest Negative Urine Urobilinogen 0.2 Ur Leukocyte Esterase Negative Urine RBC 0-3 Urine WBC 6-8 H Ur Squamous Epith Cells 6-10 H Urine Bacteria Few H Urine Mucus Moderate H Micro UA Comment Culture indicated Ur Microscopic Review Microscopic reviewed Urine Culture Comments Culture indicated Clue Cells (Wet Prep) None seen Trichomonas (Wet Prep) None seen Yeast (Wet Prep) None seen Chlam trachomat DNA PCR Not detected N.gonorrhoeae DNA (PCR) Not detected 08/10/18 08/10/18 08/11/18 14:50 14:50 05:15 CBC w Diff Slide review pending Auto diff final WBC 17.6 H 14.3 H RBC 4.51 4.15 Hgb 13.9 12.9 Hct 41.1 37.3 MCV 91.1 89.9 MCH 30.8 31.0 MCHC 33.9 34.5 RDW 11.8 12.2 Plt Count 244 269 MPV 9.8 10.0 Neut % (Auto) 83.2 H 89.8 H Lymph % (Auto) 9.8 6.8 L [place] % (Auto) 5.9 3.1 Eos % (Auto) 0.4 0.1 Baso % (Auto) 0.7 0.2 Neut # (Auto) 14.7 H 12.9 H Lymph # (Auto) 1.7 1.0 [place] # (Auto) 1.0 H 0.4 Eos # (Auto) 0.1 0.0 Baso # (Auto) 0.1 0.0 WBC Differential . . Diff Scan Auto diff confirmed Differential Comment . . Sodium 136 Potassium 4.4 Chloride 101 Carbon Dioxide 23.9 Anion Gap 11 BUN 12 Creatinine 0.71 Estimated GFR Greater than 89 Random Glucose 96 Calcium 9.0 Total Bilirubin 1.0 AST 31 ALT 21 Alkaline Phosphatase 59 Total Protein 7.9 Albumin 3.8 Lipase 124 Urine Color Urine Clarity Urine pH Ur Specific [place] [address] Urine Protein Urine Glucose (UA) Urine Ketones Urine Occult Blood Urine Nitrate Urine Bilirubin Urine Ictotest Urine Urobilinogen Ur Leukocyte Esterase Urine RBC Urine WBC Ur Squamous Epith Cells Urine Bacteria Urine Mucus Micro UA Comment Ur Microscopic Review Urine Culture Comments Clue Cells (Wet Prep) Trichomonas (Wet Prep) Yeast (Wet Prep) Chlam trachomat DNA PCR N.gonorrhoeae DNA (PCR) - Imaging Impressions Abdomen/Pelvis CT 08/10/18 16:24 CONCLUSION: 1. Acute appendicitis. 2. 1.7 cm enhancing lesion in the right lobe of the liver. This probably a hemangioma versus adenoma. On a nonemergent outpatient basis, recommend an MRI of the liver for further evaluation. Assessment and Plan - Assessment (1) Acute appendicitis Code(s): K35.80 - Unspecified acute appendicitis Status: Acute Plan: POD #1 lap appendectomy, doing well Discharge home; f/u my office one week - Plan Discussed Condition With: Patient Mother Nurse Medical Team (1) Acute appendicitis Qualifiers: Acute appendicitis type: unspecified acute appendicitis type Qualified Code(s ): K35.80 - Unspecified acute appendicitis
== END 2018-08-11 10:56 | disposition home or self-care (01) ==
LOC: PHEDA 15:02 → PHED 15:02 → PHEDA 19:09 → PH3 21:29
PROVIDERS: ADMIT Internal Medicine; ATTEND Internal Medicine
PROC: LAPAPPY (ICD-10-PCS; 2018-08-10 19:30)
DX: K35.30 Acute appendicitis with localized peritonitis, without perforation or gangrene